=== PATIENT | male | born 1970 | race African-American/Black ===

== ENCOUNTER 2019-04-22 19:51 | Observation (INO) | payer OTHER, SELFPAY ==
[2019-04-22] MEDS ORDERED: Nitroglycerin 2% Ointment 1 INCH/1 GM Packet ONE (20:16)
--- NOTE | 2019-04-22 20:26 | RAD ---
EXAM: Single view of the chest HISTORY: Chest pain COMPARISON: 03/22/2017 FINDINGS: Single view of the chest shows a normal sized cardiomediastinal silhouette. There is no ilsa dence of consolidation, mass, or pleural effusion. The bones are unremarkable. IMPRESSION: No evidence of acute cardiopulmonary disease
[2019-04-22 20:28] LABS: #Basophils 0.1 thou/uL (0.0-0.2); #Eosinphils 0.5 thou/uL (0.0-0.7); #Lymphocytes 3.3 thou/uL (1.20-3.40); #Monocytes 0.9 thou/uL (0.11-0.59); #Neutrophils 5.1 thou/uL (1.40-6.50); %Basophils 0.9 % (0.0-1.0); %Eosinophils 4.8 % (0.0-10.0); %Monocytes 8.8 % (0.0-10.0); %Neutrophils 51.6 % (42.0-75.0); Hemoglobin 12.6 g/dL (14.0-18.0); Mean Corpuscular HGB CONC 34.4 g/dL (32.0-36.0); Mean Corpuscular Hemoglobin 30.1 pg (27.0-31.0); Mean Corpuscular Volume 87.3 fL (78.0-98.0); Mean Platelet Volume 6.6 fL (7.4-10.4); Platelet Count 339 thou/uL (130-400); RBC Distribution Width 11.8 % (11.5-14.5); White Blood Cell (WBC) Count 9.9 thou/uL (4.8-10.8)
[2019-04-22 21:17] LABS: Albumin 3.7 g/dL (3.5-5.0); Alkaline Phosphatase 73 U/L (40-150); Anion Gap 10 mmol/L (10-20); Bilirubin, Total 0.6 mg/dL (0.2-1.2); Calc. Creatinine Clearance 0 mL/min (70-130); Carbon Dioxide 26 mmol/L (22-29); Chloride 105 mmol/L (98-107); Estimated GFR-MDRD 70; Globulin 2.9 g/dL (2.4-3.5); Glucose 171 mg/dL (70-105); Potassium 3.5 mmol/L (3.5-5.1); Protein, Total 6.6 g/dL (6.0-8.3); Sodium 137 mmol/L (136-145)
[2019-04-22 21:22] LABS: BUN (Urea Nitrogen) 17 mg/dL (8.9-20.6)
[2019-04-22 21:24] LABS: ALT (SGPT) 12 U/L (8-55); AST (SGOT) 13 U/L (5-34)
--- NOTE | 2019-04-22 22:14 | PDOC.FPRHP ---
- History of Present Illness Chief Complaint: chest pain History of Present Illness: Pt reports onset of chest pain today at [id number]. Describes pain as "heavy." Like a hydraulic cylinder pressing on the middle of his chest. He was stressing and thinking about his homelessness situation when this happened. Tried breathing and calming down but this did not help. No increased pain on exertion. Associated symptoms included mild SOB, some sweating. He has had this pain before but ignored it and it went away on its own. Denies any palpitations or N/V. Reports drug use a couple days ago: smoked meth. ED Course: Given nitro in ED. - Allergies/Adverse Reactions Allergies Allergy/AdvReac Type Severity Reaction Status Date / Time Penicillins Allergy Verified 04/23/19 00:31 - Home Medications Medication Instructions Recorded Confirmed Type No Known 04/23/19 04/23/19 History - History PMHx: - denies hx of HTN - Diabetes II PSHx: - "groin surgery" for "blockage" that would have gone straight to his lungs - Tonsillectomy FHx: - Diabetes: cousins - Heart Disease: dad, cousins Social: - recently homeless and out of his metformin. Lost his job. - . Children are grown. - Smokin.5-1 ppd for 30 years - Alcohol: none, previously socially - Drugs: not currently. Previous marijuana, cocaine addiction, meth. - Review of Systems General: denies: fever/chills, weight/appetite/sleep changes, fatigue Eyes: reports: other (history of poor vision, does not wear glasses) ENT: denies: nasal congestion, rhinorrhea Respiratory: reports: shortness of breath (mild). denies: cough, congestion Cardiovascular: reports: chest pain (see hpi), edema (intermittently). denies: palpitation Gastrointestinal: reports: constipation. denies: nausea, vomiting, diarrhea Genitourinary: reports: other (urinary frequency) Skin: denies: rashes Musculoskeletal: reports: pain (leg cramps bilaterally which occur when sleeping ) Neurological: reports: numbness (in feet and hands) Psychological: reports: anxiety, depression - Vital signs BP: 108/73 HR: 80 RR: 19 Pox: 99% on RA - Physical Exam Constitutional: NAD HEENT: normocephalic and atraumatic, PERRLA, EOMI (minimal left beating nystagmus), no scleral icterus, MMM Neck: supple, trachea midline, no LAD Heart: RRR, normal S1/S2, no murmurs/rubs/gallops Lungs: CTAB, no respiratory distress, no wheezing Abdomen: soft, non-tender, bowel sounds present Musculoskeletal: normal structure, normal tone Neurological: no focal deficit Skin: no rash/lesions, good turgor Heme/Lymphatic: no unusual bruising or bleeding, no purpura, no petechia -Psychiatric: Depressed mood, congruent affect Thought process: perseveration Speech content: normal Intact remote and recent memory FMR H&P: Results - Labs Result Diagrams: 04/23/19 02:10 04/23/19 02:10 Lab results: WBC 9.9 thou/uL (4.8-10.8) 04/22/19 20:20 Hgb 12.6 g/dL (14.0-18.0) L 04/22/19 20:20 Hct 36.7 % (42.0-52.0) L 04/22/19 20:20 MCV 87.3 fL (78.0-98.0) 04/22/19 20:20 Plt Count 339 thou/uL (130-400) 04/22/19 20:20 Neutrophils % 51.6 % (42.0-75.0) 04/22/19 20:20 Sodium 137 mmol/L (136-145) 04/22/19 20:20 Potassium 3.5 mmol/L (3.5-5.1) 04/22/19 20:20 Chloride 105 mmol/L (98-107) 04/22/19 20:20 Carbon Dioxide 26 mmol/L (22-29) 04/22/19 20:20 BUN 17 mg/dL (8.9-20.6) 04/22/19 20:20 Creatinine 1.11 mg/dL (0.7-1.3) 04/22/19 20:20 Glucose 171 mg/dL (70-105) H 04/22/19 20:20 Calcium 9.0 mg/dL (7.8-10.44) 04/22/19 20:20 Total Bilirubin 0.6 mg/dL (0.2-1.2) 04/22/19 20:20 AST 13 U/L (5-34) 04/22/19 20:20 ALT 12 U/L (8-55) 04/22/19 20:20 Alkaline Phosphatase 73 U/L (40-150) 04/22/19 20:20 Serum Total Protein 6.6 g/dL (6.0-8.3) 04/22/19 20:20 Albumin 3.7 g/dL (3.5-5.0) 04/22/19 20:20 - EKG Interpretation EKG: sinus rhythm - Radiology Interpretation Chest x-ray Status: report reviewed by me Additional comment: negative FMR H&P: A/P - Problem List (1) Anemia Current Visit: Yes Status: Acute Code(s): D64.9 - ANEMIA, UNSPECIFIED (2) Type 2 diabetes mellitus Current Visit: Yes Status: Chronic (3) Chest pain Current Visit: Yes Status: Acute Code(s): R07.9 - CHEST PAIN, UNSPECIFIED (4) Tobacco abuse Current Visit: No Status: Chronic Code(s): Z72.0 - TOBACCO USE (5) Depression with anxiety Current Visit: Yes Status: Acute Code(s): F41.8 - OTHER SPECIFIED ANXIETY DISORDERS (6) Polysubstance abuse Current Visit: Yes Status: Acute Code(s): F19.10 - OTHER PSYCHOACTIVE SUBSTANCE ABUSE, UNCOMPLICATED - Plan Admit to telemetry for observation Disposition/LOS: 48-year-old male admitted for: Typical chest pain: - HEART score 4 - Crushing in nature and related to some sweating and SOB - No EKG changes - First trop neg - Ordered ECHO and treadmill/NM stress test in AM - NPO at midnight - Risk stratify: TSH, Magnesium, phosphorus, fasting lipid panel, A1C Type 2 Diabetes Mellitus: - Normally takes metformin 1000 mg BID WM, but unsure of when he last took this since he has been homeless now for 1 month. - Will await A1C results and then see if metformin can be restarted or if pt needs insulin Depression w/ anxiety: - Pt w/ probable history of untreated depression which has acutely worsened since he became unemployed and homeless - Will continue to monitor and consult case mgmt to get him resources and new PCP - Symptoms could be due to anxiety since onset occurred while pt was perseverating on his life and feeling hopeless when chest pain started Polysubstance abuse Tobacco abuse - Current smoker - History of polysubstance drug abuse including cocaine, meth, and marijuana - Last use was meth 2-3 days ago Anemia - monitor w/ AM labs Code: FULL VTE PPx: SCDs GI PPx: none Fluids: LR MIVF FMR H&P: Upper Level - Pertinent history 48 yo homeless male who smoked meth 2-3 days ago, reports chest pain today while at rest, described as pressure, associated with sob, without radiation, substernal. No hx of TX. Has type 2 diabetes and smokes. - Pertinent findings VSS PE: No increased work of breathing CP not reproducible NAD depressed mood Labs: trop negative EKG no acute ischemic changes - Plan Date/Time: 04/22/192212 A/P: #Atypical chest pain - -rule out ACS with serial troponins, repeat EKG if chest pain returns, will stress in AM since heart score was a 3-4; pt has several risk factors #hx of drug use/abuse #homeless- CM for discharge planning #type 2 diabetes-will check hba1c, restart metformin, consider insulin pending hba1c results (70/30 since not insured). #tobacco abuse-counseled on cessation, nicotine patch. Christian Montes MD, PGY-3 Addendum - Attending - Attending Attestation Date/Time: 04/23/19 0804 I personally evaluated the patient and discussed the management with Dr. Bay on 04/22/2019 I agree with the History, Examination, Assessment and Plan documented above with any addition or exceptions noted below - 48 yo homeless male with h/o type 2 DM presented with chest pain today while at rest, described as substernal pressure/heaviness. Was associated with sob, no radiation of pain. No hx of TX. H/o polysubstance abuse with meth use 2-3 days ago. PMH/PSH/SH reviewed and agree with resident's documentation. Afebrile VSS Exam repeated by me and agree with resident's findings. Labs: WBC=9.9, H/H=12.6/36.7, Tdz=627, Tk=476, K=3.5, Ht=828, CO2=26, BUN/Cr=17/1.11, Zkpn=111, TSH=1.8842, trop I <0.010 x 2. EKG- NSR; no ST changes. A/P: 1) Chest pain in patient with risk factors- continue to trend cardiac enzymes. Plan for stress test today. 2) Type 2 DM- will monitor accuchecks and start meds as indicated. 3) Social - pt currently homeless; will consult SW/case management for resources.
[2019-04-22] MEDS ORDERED: Ondansetron PF 4 MG/2 ML Vial IVP PRN (23:01)
[2019-04-22] MEDS ORDERED: Ondansetron ODT 4 MG TAB PO PRN (23:01)
[2019-04-22] MEDS ORDERED: Dextrose 5% in Water 1,000 ML IV PRN (23:01)
[2019-04-22] MEDS ORDERED: Acetaminophen 325 MG TAB PO PRN (23:01)
[2019-04-22] MEDS ORDERED: Nicotine 14 MG PATCH TD PRN (23:01)
[2019-04-22] MEDS ORDERED: Dextrose 50% Abboject 50 ML SYRINGE SLOW IVP PRN (23:01)
[2019-04-22] MEDS ORDERED: Polyethylene Glycol 3350 17 GM Packet PO PRN (23:07)
[2019-04-22] MEDS ORDERED: Nitroglycerin 0.4 MG TAB (25 Tab Bottle) PO PRN (23:07)
[2019-04-22] MEDS ORDERED: Aspirin 325 mg Enteric Coated Tablet PO SCH (23:15)
[2019-04-22 23:49] LABS: Hemoglobin A1c 9.6 % (4.0-6.0)
[2019-04-22 23:50] LABS: Phosphorus 3.4 mg/dL (2.3-4.7)
[2019-04-23 00:05] VITALS: BMI 24.7
[2019-04-23] MEDS ORDERED: HumaLOG 300 UNITS/3 ML VIAL SC PRN (00:47)
[2019-04-23] MEDS: Lactated Ringer's 1,000 ML IV SCH ×2 (00:50→11:19)
[2019-04-23 02:18] LABS: #Basophils 0.1 thou/uL (0.0-0.2); #Eosinphils 0.6 thou/uL (0.0-0.7); #Lymphocytes 2.7 thou/uL (1.20-3.40); #Monocytes 0.7 thou/uL (0.11-0.59); #Neutrophils 3.3 thou/uL (1.40-6.50); %Basophils 0.8 % (0.0-1.0); %Eosinophils 7.9 % (0.0-10.0); %Lymphocytes 36.4 % (21.0-51.0); %Monocytes 9.8 % (0.0-10.0); %Neutrophils 45.1 % (42.0-75.0); Mean Corpuscular Hemoglobin 29.9 pg (27.0-31.0); Mean Corpuscular Volume 87.8 fL (78.0-98.0); Mean Platelet Volume 6.6 fL (7.4-10.4); Platelet Count 326 thou/uL (130-400); RBC Distribution Width 11.8 % (11.5-14.5); Red Blood Cell (RBC) Count 4.03 mill/uL (4.70-6.10); White Blood Cell (WBC) Count 7.3 thou/uL (4.8-10.8)
[2019-04-23 02:56] LABS: ALT (SGPT) 11 U/L (8-55); AST (SGOT) 11 U/L (5-34); Albumin 3.3 g/dL (3.5-5.0); Alkaline Phosphatase 66 U/L (40-150); Anion Gap 15 mmol/L (10-20); BUN (Urea Nitrogen) 19 mg/dL (8.9-20.6); Bilirubin, Total 0.5 mg/dL (0.2-1.2); Calc. Creatinine Clearance 100 mL/min (70-130); Calcium 8.5 mg/dL (7.8-10.44); Carbon Dioxide 23 mmol/L (22-29); Cardiac Risk 4.3 (Less than 4.5); Chloride 105 mmol/L (98-107); Cholesterol 156 mg/dl (< 200 Desired); Estimated GFR-MDRD 76; Globulin 2.8 g/dL (2.4-3.5); Glucose 249 mg/dL (70-105); HDL Cholesterol 36 mg/dL (>60 Neg Risk); LDL Cholesterol, Calculated 92 mg/dL; Potassium 3.7 mmol/L (3.5-5.1); Protein, Total 6.1 g/dL (6.0-8.3); Sodium 139 mmol/L (136-145); Triglycerides 137 mg/dL (Less than 150)
--- NOTE | 2019-04-23 05:03 | PDOC.FM ---
- Subjective Subjective: Mr. Ledesma was asleep at the time of examination and was moderately easy to arouse. He had no overnight complaints, and did not endorse any chest pain or shortness of breath. - Objective Vital Signs & Weight: Vital Signs (12 hours) Temp Pulse Resp BP Pulse Ox 04/23/19 04:09 97.8 F 72 16 118/72 96 04/22/19 23:56 97.5 F L 80 18 108/65 99 Weight Weight 82.69 kg Result Diagrams: 04/23/19 02:10 04/23/19 02:10 Phys Exam - Physical Examination Constitutional: NAD HEENT: moist MMs, oral pharynx no lesions Neck: supple, full ROM Respiratory: no wheezing, no rales, no rhonchi, clear to auscultation bilateral Cardiovascular: RRR, no significant murmur, no rub Gastrointestinal: soft, non-tender, no distention Musculoskeletal: no edema, pulses present Neurological: non-focal, moves all 4 limbs Deviation from normal: Sleepy, extremely tired Skin: no rash Dx/Plan (1) Anemia Code(s): D64.9 - ANEMIA, UNSPECIFIED Status: Acute (2) Chest pain Code(s): R07.9 - CHEST PAIN, UNSPECIFIED Status: Acute (3) Depression with anxiety Code(s): F41.8 - OTHER SPECIFIED ANXIETY DISORDERS Status: Acute (4) Polysubstance abuse Code(s): F19.10 - OTHER PSYCHOACTIVE SUBSTANCE ABUSE, UNCOMPLICATED Status: Acute (5) Type 2 diabetes mellitus Status: Chronic - Plan Plan: 1. Typical Chest Pain, r/o ACS -Suspicious history of "crushing" chest pain with associated sweating and SOB -EKG: No acute ischemic changes -Trops: Negative x3 -ECHO and Treadmill/NM Stress Test scheduled for 04/23 -M.6 -Phos: 3.4 -Lipids: Triglycerides (137), Cholesterol (156), LDL (92), HDL (36) -HgA1C: 9.6 -TSH: 1.8 -Admit to Telemetry Floor and await results of Echo / NM Stress Test 2. DM2, Uncontrolled -Recent homelessness has lead to poor medication compliance -Recently took Metformin 1000 mg PO BID -HgA1c: 9.6 -Restart Metformin / Mild Intensity Sliding Scale Insulin 3. Depression / Anxiety -Previously untreated depression, worsened since recent unemployment and homelessness -Consult Case Management to establish medical care post-DC -Monitor for worsening symptoms of anxiety and associated new-onset chest pain 4. Polysubstance Abuse -Current smoker -Hx of cocaine, meth, and MJ abuse -Last meth use was 2-3 days ago -Monitor for worrisome signs of withdrawal 5. Anemia -H on 04/22 -Continue to monitor with subsequent labs -Supplement with Fe if needed Code: FULL VTE PPx: SCDs GI PPx: None Fluids: LR @ 150 ml/hr Dispo: Patient currently admitted to Telemetry and awaiting Echo and Stress Test. Treat DM2 and Anemia and monitor for symptoms of depression and anxiety. Expected LOS < 48H
[2019-04-23] MEDS ORDERED: Aspirin 325 mg Enteric Coated Tablet PO SCH (09:00)
--- NOTE | 2019-04-23 11:15 | NM ---
EXAM: Nuclear medicine cardiac perfusion examination with ejection fraction HISTORY: Chest pain TECHNIQUE: Rest images: 9.6 mCi technetium 99m sestamibi Stress images: 30.4 mCi of technetium 9M sestamibi; Adenosine COMPARISON: None FINDINGS: Tomographic images: No fixed or reversible perfusion defects. Gated images: Normal wall motion and ejection fraction of 52%. EDV: 137 mL LHR: 0.3 TID: 1.0 IMPRESSION: No evidence of ischemia
[2019-04-23 15:10] LABS: Amphetamine Detected (NotDetected); Cocaine Metabolite Screen Not Detected (NotDetected); Medtox Reader # READER 4; Methamphetamine Detected (NotDetected); Opiate Screen Not Detected (NotDetected); Phencyclidine (PCP) Not Detected (NotDetected); THC/Cannabinoid Screen Not Detected (NotDetected)
[2019-04-23 15:11] LABS: Barbiturates Screen Not Detected (NotDetected); Benzodiazepine Screen Not Detected (NotDetected); Medtox Control Line Valid? VALID (VALID); Methadone Not Detected (NotDetected); Oxycodone Screen Not Detected (NotDetected); Tricyclic Screen Not Detected (NotDetected)
[2019-04-23] MEDS ORDERED: ADENOSINE 60 MG/20 ML VIAL ONE (15:57)
[2019-04-23 16:04] VITALS: BP 118/67; TEMP 97.4
--- NOTE | 2019-04-23 16:13 | PDOC.EVN ---
Event Note - Event Note Event Note: Performed CESAR in order to assess for sources of GI bleeding. 1 external, non- bleeding hemorrhoid was noted, but no internal hemorrhoids could be palpated. Prostate was boggy and without palpable nodules. No blood noted on glove following examination.
[2019-04-23] MEDS ORDERED: metFORMIN 500 MG TAB PO SCH (17:00)
--- NOTE | 2019-04-24 04:35 | DIS ---
DATE OF ADMISSION: 04/22/2019 DATE OF DISCHARGE: 04/23/2019 RESIDENT: Dr. Blaine Sr. ADMITTING ATTENDING: Brittney Canseco MD. DISCHARGE ATTENDING: Bib Thompson MD. PROCEDURES: Chest x-ray, no evidence of acute cardiopulmonary disease, nuclear stress test, no evidence of ischemia. Ejection fraction noted to be 52% with no wall motion abnormalities, echocardiogram ejection fraction between 50% and 55%. Normal right ventricle size and function. Left atrium, normal size. Right atrium, normal size. Trace mitral regurgitation. Aortic valve leaflets are moderately thickened. Mitral and tricuspid regurgitation. PRIMARY DIAGNOSIS: Chest pain, most likely secondary to undiagnosed panic disorder. SECONDARY DIAGNOSES: Depression, anxiety, polysubstance abuse, type 2 diabetes, erectile dysfunction, tobacco abuse, and anemia. DISCHARGE MEDICATIONS: None as the patient is currently unable to afford or obtain prescription medication due to homelessness. DISCONTINUED MEDICATIONS: 1. Aspirin 325 mg. 2. Insulin. 3. Lactated Ringer's. HISTORY OF PRESENT ILLNESS AND HOSPITAL COURSE: Mr. Ledesma is an unfortunate 48-year-old male, who presented to the ED on 04/22/2019 at approximately 4:30 in the afternoon because of chest pain. The pain was described as heavy, "like a hydraulic cylinder" pressing in the middle of his chest. The patient admits that he was stressed and thinking about his homelessness and how he had lost his job. The patient tried to undergo breathing exercises and calming techniques, but this did not help. He had no increased chest pain on exertion. Associated symptoms include mild shortness of breath and subjective sweating. He says that he has had this pain before, but has ignored it and it went away on its own. He denied palpitations, nausea, or vomiting. He did admit to recent methamphetamine use via inhalation 2 to 3 days prior. In the ED, he was given nitroprusside paste. Troponins were negative x3. EKG demonstrated nonspecific changes and was read as normal sinus rhythm. The patient was admitted to the medical floor, where he was put on n.p.o. to undergo stress test and echocardiogram in the morning. He was also placed on a mild sliding insulin scale for his untreated diabetes. Echocardiogram report and stress test are referenced earlier in this dictation and did not display any acute findings. It was noticed during the evaluation that the patient did have a slight anemia with hemoglobin of 12 and hematocrit of 35.4. His vital signs were unremarkable other than hypertension, on one measurement with a reading of 177/65, all other readings were around the 120/70 range. The patient was questioned extensively about his anemia risk factors such as advanced age, male gender, homelessness. He denied any known bleeding per rectum, dark stools, fissures, hemorrhoids, etc. A digital rectal exam was performed that yielded no palpable hemorrhoids or sources of blood loss. Prostate was mildly enlarged and boggy, but did not have any noticeable nodules. There was no blood on the glove following the examination. As the patient did not continue to display worrisome signs for acute coronary syndrome, he was discharged on 04/23/2019. DISCHARGE LABORATORY DATA: Indicated a WBC count of 7.3, hemoglobin 12, hematocrit 35.4, and platelets 326. Sodium 139, potassium 3.7, chloride 105, carbon dioxide 23, BUN 19, creatinine 1.03, glucose last measurement 262. Phosphorus 3.4. Hemoglobin A1c 9.6. AST 11, ALT 11, alkaline phosphatase 66. Troponins negative. Triglycerides 137, cholesterol 156, LDL 92, HDL 36. TSH 1.88. DISPOSITION: Stable. DISCHARGE INSTRUCTIONS: 1. Location, unknown as the patient is homeless. 2. Diet, no restrictions as the patient is homeless. 3. Activity, no restrictions as the patient is homeless. FOLLOWUP: The patient was advised to follow up with either [facility] or [facility] as it is a free clinic, so that he can maintain better control of his chronic diseases such as type 2 diabetes. He was advised that he may be able to apply for free medications and avoid further complications. Additionally, he was advised to seek outpatient follow-up for his anemia based on age, risk factors, and lack of cancer screening. Job ID: [id number] [facility]
--- NOTE | 2019-04-24 12:33 | EKG ---
Test Reason : ER INDICATION Blood Pressure : / mmHG Vent. Rate : 093 BPM Atrial Rate : 093 BPM P-R Int : 140 ms QRS Dur : 086 ms QT Int : 366 ms P-R-T Axes : 048 074 028 degrees QTc Int : 455 ms Sinus rhythm Normal ECG Confirmed by ALMAS DRISCOLL DO ([id number]), editor at large DELORES MATTSON ([id number]) on 04/24/2019 12:32:43 PM Referred By: Confirmed By:ALMAS DRISCOLL DO
--- NOTE | 2019-04-24 12:33 | EKG ---
Test Reason : Blood Pressure : / mmHG Vent. Rate : 070 BPM Atrial Rate : 070 BPM P-R Int : 150 ms QRS Dur : 094 ms QT Int : 428 ms P-R-T Axes : 048 061 035 degrees QTc Int : 462 ms Normal sinus rhythm Normal ECG #2 Confirmed by ALMAS DRISCOLL DO ([id number]), film or videotape editor DELORES MATTSON ([id number]) on 04/24/2019 12:32:54 PM Referred By: Confirmed By:ALMAS DRISCOLL DO
== END 2019-04-23 17:15 | disposition home or self-care (01) ==
LOC: ERS 19:51 → 2SW 22:04
PROVIDERS: ADMIT Family Medicine; ATTEND Family Medicine
DX: R07.9 Chest pain, unspecified (principal); F41.0 Panic disorder [episodic paroxysmal anxiety]; F41.8 Other specified anxiety disorders; F32.9 Major depressive disorder, single episode, unspecified; E11.9 Type 2 diabetes mellitus without complications; I10 Essential (primary) hypertension; D64.9 Anemia, unspecified; F17.210 Nicotine dependence, cigarettes, uncomplicated; N52.9 Male erectile dysfunction, unspecified; K64.4 Residual hemorrhoidal skin tags; Z88.0 Allergy status to penicillin
CPT/HCPCS: 36415; 36416; 71045; 78452; 80053; 80061; 80306; 83036; 83735; 84100; 84443; 84484; 85025; 93005; 93017; 93306; 96360; 96361; A9500; G0378; J0153